=== PATIENT | female | born 1960 | race African-American/Black ===

== ENCOUNTER 2016-10-03 20:25 | Emergency (ER) | payer OTHER ==
[~2016-10-03] VITALS: Ht 157.5 cm; Wt 72.6 kg
[2016-10-03] MEDS ORDERED: BENADRYL25 MG PO (20:44)
[2016-10-03] MEDS ORDERED: PREDNISONE 20 M20 MG PO (21:13)
[2016-10-03 22:16] VITALS: BP 157/105
== END 2016-10-03 22:22 | disposition home or self-care (01) ==
LOC: ER 20:25
DX: T78.1XXA Other adverse food reactions, not elsewhere classified, initial encounter (principal); X58.XXXA Exposure to other specified factors, initial encounter